=== PATIENT | female | born 1980 | race Caucasian/White ===

== ENCOUNTER 2016-11-09 13:10 | Emergency (ER) | payer OTHER ==
[2016-11-09 13:24] VITALS: BP 174/124; PULSE 143; O2SAT 97
--- NOTE | 2016-11-09 13:32 | ERPHSYRPT ---
- History of Present Illness Time Seen by Provider: 11/09/16 13:23 Source: patient Exam Limitations: clinical condition Patient Subjective Stated Complaint: pt co spasms to lower back for 2 days now, pt has done heat,motrin, ice without relief Triage Nursing Assessment: pt walked in with no difficulty,resp easy, skin w/d, alet Physician History: PATIENT WITH HISTORY OF LONGSTANDING CHRONIC LOW BACK PAIN, PREVIOUSLY TREATED IN PAIN CLINIC. DENIES RECENT HISTORY OF TRAUMA OR INJURY. STATES HAS NO RELIEF WITH NUCYENTA OR MOTRIN. Timing/Duration: day(s) Method of Injury: unknown Quality: sharp Back Pain Location: lumbar spine Back Pain Radiation: buttocks Severity of Pain-Max: severe Severity of Pain-Current: severe Modifying Factors: Improves With: movement Previous symptoms: same symptoms as today Allergies/Adverse Reactions: acetaminophen [From Tylenol] Allergy (Verified 11/09/16 13:25) droperidol Allergy (Verified 11/09/16 13:25) fentanyl Allergy (Verified 11/09/16 13:25) ketorolac [From Toradol] Allergy (Verified 11/09/16 13:25) morphine Allergy (Verified 11/09/16 13:25) Hives nalbuphine [From Nubain] Allergy (Verified 11/09/16 13:25) penicillin G Allergy (Verified 11/09/16 13:25) Hives Home Medications: Metoprolol Succinate 50 mg [Toprol Xl 50 MG] 50 mg PO BID 05/21/16 [ History] Hx Tetanus, Diphtheria Vaccination/Date Given: Yes (2012) Hx Influenza Vaccination/Date Given: No Hx Pneumococcal Vaccination/Date Given: No Immunizations Up to Date: Yes - Review of Systems Constitutional: No Fever, No Chills Eyes: No Symptoms Ears, Nose, & Throat: No Symptoms Respiratory: No Cough, No Dyspnea Cardiac: Orthopnea, No Chest Pain, No Edema, No Syncope Abdominal/Gastrointestinal: No Abdominal Pain, No Nausea, No Vomiting, No Diarrhea Genitourinary Symptoms: No Dysuria Musculoskeletal: No Back Pain, No Neck Pain Skin: No Symptoms, No Rash Neurological: No Dizziness, No Focal Weakness, No Sensory Changes Psychological: No Symptoms Endocrine: No Symptoms All Other Systems: Reviewed and Negative - Past Medical History Pertinent Past Medical History: Yes Cardiac History: Arrhythmia Musculoskeletal History: Other Female Reproductive Disorders: Endometriosis Other Medical History: mrsa, disc in back torn - Past Surgical History Past Surgical History: Yes Cardiac: Pacemaker Gastrointestinal: Appendectomy, Cholecystectomy Female Surgical History: Hysterectomy - Social History Smoking Status: Never smoker Exposure to second hand smoke: No Drug Use: none Patient Lives Alone: No - Female History Hx Last Menstrual Period: 2008 Hx Now: No - Nursing Vital Signs Temperature: 99.3 F Temperature Source: Oral Pulse Rate: 143 Respiratory Rate: 16 Pain Intensity: 4 - Physical Exam General Appearance: no apparent distress, alert, other (PATIENT AMBULATES INTO EMERGENCY IN NO DISTRESS) Eye Exam: PERRL/EOMI, eyes nml inspection Neck Exam: normal inspection, non-tender, supple, full range of motion, No meningismus, No midline tenderness Respiratory Exam: normal breath sounds, lungs clear, No respiratory distress Cardiovascular Exam: regular rate/rhythm, normal heart sounds Gastrointestinal Exam: soft, No tenderness, No mass Back Exam: vertebral tenderness, decreased range of motion Extremity Exam: normal inspection, normal range of motion, No calf tenderness, No pedal edema Peripheral Pulses: carotid (R): 2+, carotid (L): 2+, femoral (R): 2+, femoral (L ): 2+, dorsalis-pedis (R): 2+ Neurologic Exam: alert, oriented x 3, cooperative, 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 tested, normal mood/affect, nml station & gait, sensation nml, No motor deficits Skin Exam: normal color, warm, dry, No rash SpO2 Interpretation: normal SpO2: 97 Oxygen Delivery: Room Air Ordered Tests: Active Orders 24 hr Category Date Time Status UA Stat Lab 11/09/16 13:34 Ordered Urine Triage Profile Stat Lab 11/09/16 13:31 Ordered - Progress Progress: unchanged Counseled pt/family regarding: lab results - Departure Time of Disposition: 14:15 Departure Disposition: Home Clinical Impression: CHRONIC LOW BACK PAIN Condition: Stable Critical Care Time: No Additional Instructions: FOLLOWUP WITH YOUR FAMILY PHYSICIAN EARLY NEXT WEEK SCHEDULED. ZANAFLEX 2MG EVERY 8 HOURS NEEDED FOR MUSCLE SPASM. Prescriptions: Tizanidine HCl [Zanaflex] 2 mg PO TIDPRN PRN #15 capsule PRN Reason: Muscle Spasms
[2016-11-09 14:07] LABS: Collection Type CLEAN CATCH
[2016-11-09 14:11] LABS: COMPLETE URINE MICROSCOPIC? YES
[2016-11-09 14:29] LABS: Bacteria FEW /HPF (NEGATIVE); Epithelial Cells FEW /HPF (FEW); WBC 0-2 /HPF (0-5)
== END 2016-11-09 14:30 | disposition home or self-care (01) ==
LOC: ED 13:10
DX: M54.5 Low back pain (principal); G89.29 Other chronic pain
CPT/HCPCS: 80307; 81000; 99283

== ENCOUNTER 2017-04-02 20:24 | Emergency (ER) | payer OTHER ==
[2017-04-02 20:53] VITALS: O2SAT 98
[2017-04-02] MEDS ORDERED: Zanaflex 4 MG PO ONE (20:59)
--- NOTE | 2017-04-02 21:05 | ERPHSYRPT ---
- History of Present Illness Time Seen by Provider: 04/02/17 21:00 Source: patient Exam Limitations: no limitations Patient Subjective Stated Complaint: Twisted back at 1700 hours, chronic back pain, c/o lower bilat back pain, PCP Carolyn Sandoval, Triage Nursing Assessment: Twisted back at 1700 hours, chronic back pain, c/o lower bilat back pain, PCP Carolyn Sandoval, ambulates to room, no c/o numbness or tigling Physician History: 36-year-old white female arrives with complaint of pain in her low lumbar region radiating to both hips since this afternoon patient states she bent over prior to beginning of this pain. Patient has had a history of chronic back pain she has been on narcotic analgesics in the past but states she has not been taking any for several months. Patient states she usually does quite well with saline Norflex. She feels like she is having spasms in her back she denies any neurologic changes. Past medical history includes arrhythmia endometriosis chronic back pain. Past surgical history includes pacer, hysterectomy Timing/Duration: today Method of Injury: bending Quality: cramping Back Pain Location: lumbar spine Severity of Pain-Max: moderate Severity of Pain-Current: moderate Modifying Factors: Improves With: nothing Associated Symptoms: lower back pain, muscle spasms, No fever, No chills, No sweating, No urinary incontinence, No loss of bowel control, No constipation, No nausea, No vomiting, No problems urinating, No light-headedness, No dizziness , No numbness in legs/feet, No weakness, No sensory/motor loss, No tingling in legs/feet Previous symptoms: same symptoms as today Allergies/Adverse Reactions: acetaminophen [From Tylenol] Allergy (Verified 11/09/16 13:25) droperidol Allergy (Verified 11/09/16 13:25) fentanyl Allergy (Verified 11/09/16 13:25) ketorolac [From Toradol] Allergy (Verified 11/09/16 13:25) morphine Allergy (Verified 11/09/16 13:25) Hives nalbuphine [From Nubain] Allergy (Verified 11/09/16 13:25) penicillin G Allergy (Verified 11/09/16 13:25) Hives Home Medications: Metoprolol Succinate 50 mg [Toprol Xl 50 MG] 50 mg PO BID 05/21/16 [ History] Hx Tetanus, Diphtheria Vaccination/Date Given: Yes Hx Influenza Vaccination/Date Given: No Hx Pneumococcal Vaccination/Date Given: No - Review of Systems Constitutional: No Fever, No Chills Eyes: No Symptoms Ears, Nose, & Throat: No Symptoms Respiratory: No Cough, No Dyspnea Cardiac: No Chest Pain, No Edema, No Syncope Abdominal/Gastrointestinal: No Abdominal Pain, No Nausea, No Vomiting, No Diarrhea Genitourinary Symptoms: No Dysuria Musculoskeletal: Back Pain (on arrival him) Neurological: No Dizziness, No Focal Weakness, No Sensory Changes Psychological: No Symptoms Endocrine: No Symptoms All Other Systems: Reviewed and Negative - Past Medical History Pertinent Past Medical History: Yes Neurological History: No Pertinent History ENT History: No Pertinent History Cardiac History: Arrhythmia Musculoskeletal History: Other GI Medical History: GERD, Gallbladder Disease Female Reproductive Disorders: Endometriosis Other Medical History: mrsa, disc in back torn - Past Surgical History Past Surgical History: Yes Cardiac: Pacemaker Gastrointestinal: Appendectomy, Cholecystectomy Musculoskeletal: Other Female Surgical History: Hysterectomy Other Surgical History: Back - Social History Smoking Status: Never smoker Exposure to second hand smoke: No Drug Use: none Patient Lives Alone: No (home) - Female History Hx Last Menstrual Period: 2008 Hx Now: No - Nursing Vital Signs Nursing Vital Signs: Initial Vital Signs Temperature 98.6 F 04/02/17 20:33 Pulse Rate 102 H 04/02/17 20:33 Respiratory Rate 12 04/02/17 20:33 Blood Pressure 136/84 04/02/17 20:33 O2 Sat by Pulse Oximetry 98 04/02/17 20:33 Pain Scale Pain Intensity [Left Lower 3 Posterior Back] Pain Intensity 3 - Physical Exam General Appearance: no apparent distress, alert Eye Exam: PERRL/EOMI, eyes nml inspection Ears, Nose, Throat Exam: normal ENT inspection, TMs normal, pharynx normal Neck Exam: normal inspection, non-tender, supple, full range of motion, No meningismus, No midline tenderness Respiratory Exam: normal breath sounds, lungs clear, No respiratory distress Cardiovascular Exam: regular rate/rhythm, normal heart sounds Gastrointestinal Exam: soft, No tenderness, No mass Back Exam: other ( is at [facility] with ) Extremity Exam: normal inspection, normal range of motion, No calf tenderness, No pedal edema Peripheral Pulses: dorsalis-pedis (R): 2+, dorsalis-pedis (L): 2+ Neurologic Exam: alert (frustrated), oriented x 3, cooperative, 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 as tested, normal mood/affect, nml station & gait, sensation nml, No motor deficits Skin Exam: normal color (this being lazy ago this), warm, dry, No rash SpO2 Interpretation: normal (98%) SpO2: 98 Oxygen Delivery: Room Air - Course Nursing assessment & vital signs reviewed: Yes Ordered Tests: Medication Summary Generic Name Dose Route Start Last Admin Trade Name Freq PRN Reason Stop Dose Admin Tizanidine HCl 4 mg 04/02/17 20:59 Zanaflex 4 Mg PO 04/02/17 21:00 ONCE ONE - Progress Progress: improved Progress Note: 04/02/17 21:03 36-year-old white female with history of chronic back pain she arrives with complaint of pain in her lumbar region with cramping radiating to bilateral hips after bending today Patient has been on narcotics in the past secondary to this however she states she stopped this she states she was started being on narcoticsl Inspect was reviewed patient had been on recent cough syrup on March 19 and it had received 10 hydrocodone/ibuprofen 5/200 on March 26, 2017 Patient really just wants Zanaflex for her back pain will go ahead and write for Zanaflex 4 mg to take home and 4 mg orally 3 times a day as needed patient follow-up with her family doctor - Departure Time of Disposition: 21:05 Departure Disposition: Home Clinical Impression: Spasm of lumbar paraspinous muscle Back pain Qualifiers: Back pain location: low back pain Chronicity: acute Back pain laterality: bilateral Sciatica presence: without sciatica Qualified Code(s): M54.5 - Low back pain Condition: Fair Critical Care Time: No Referrals: SHRADDHA SANDOVAL [Primary Care Provider] - Instructions: Low Back Pain Additional Instructions: Return home. Avoid repetitive bending twisting lifting pushing pulling 48 hours. Zanaflex as directed. Follow-up with your family doctor. Return for acute distress or for severe symptoms. Prescriptions: Tizanidine HCl 4 mg [Zanaflex 4 MG] 4 mg PO TID PRN #12 tablet
[2017-04-02 21:30] VITALS: BP 132/89; PULSE 103
== END 2017-04-02 21:32 | disposition home or self-care (01) ==
LOC: ED 20:24
DX: M62.830 Muscle spasm of back (principal); M54.5 Low back pain; X50.1XXA Overexertion from prolonged static or awkward postures, initial encounter
CPT/HCPCS: 99281; A9270-GY

== ENCOUNTER 2018-01-26 15:00 | Emergency (ER) | payer OTHER ==
[2018-01-26 16:06] VITALS: O2SAT 96
--- NOTE | 2018-01-26 16:36 | ERPHSYRPT ---
- History of Present Illness Time Seen by Provider: 01/26/18 16:28 Source: patient Exam Limitations: no limitations Patient Subjective Stated Complaint: has a hx of L3-4, S1 back problems. pain x 2 days. unknown injury. states may have twisted it. Triage Nursing Assessment: alert and in no distress. states pain in low back. slight tenderness on palpation. able to ambulate with no distress. gait steady and even. Physician History: 37-year-old white female with history of chronic back pain, arrhythmia, reflux arrives with complaint of pain in her low back symptoms for 2 days. Patient states that she has chronic back pain with degenerative disc disease that she frequently has back pain she states she's been having pain in her low back lumbar region midline symptoms for 2 days. She states she usually gets better with Zanaflex. She denies any other complaints denies any injuries. Past medical history includes arrhythmia, cardiac pacemaker, GERD, gallbladder disease, endometriosis past surgical history includes hysterectomy, cardiac pacemaker social history patient denies tobacco alcohol, or illicit drug use. Timing/Duration: day(s) (2 days) Severity: moderate Modifying Factors: Improves With: nothing Associated Symptoms: No nausea, No vomiting, No abdominal pain, No shortness of breath, No heartburn, No diaphoresis, No cough, No chills, No chest pain, No fever, No headaches, No loss of appetite, No malaise, No rash, No syncope, No seizure, No weakness Allergies/Adverse Reactions: acetaminophen [From Tylenol] Allergy (Verified 11/09/16 13:25) droperidol Allergy (Verified 11/09/16 13:25) fentanyl Allergy (Verified 11/09/16 13:25) ketorolac [From Toradol] Allergy (Verified 11/09/16 13:25) morphine Allergy (Verified 11/09/16 13:25) Hives nalbuphine [From Nubain] Allergy (Verified 11/09/16 13:25) penicillin G Allergy (Verified 11/09/16 13:25) Hives Home Medications: Metoprolol Succinate 50 mg [Toprol Xl 50 MG] 50 mg PO BID 05/21/16 [ History] Hx Tetanus, Diphtheria Vaccination/Date Given: Yes Hx Influenza Vaccination/Date Given: No Hx Pneumococcal Vaccination/Date Given: No - Review of Systems Constitutional: No Fever, No Chills Eyes: No Symptoms Ears, Nose, & Throat: No Symptoms Respiratory: No Cough, No Dyspnea Cardiac: No Chest Pain, No Edema, No Syncope Abdominal/Gastrointestinal: No Abdominal Pain, No Nausea, No Vomiting, No Diarrhea Genitourinary Symptoms: No Dysuria Musculoskeletal: Back Pain Skin: No Rash Neurological: No Dizziness, No Focal Weakness, No Sensory Changes Psychological: No Symptoms Endocrine: No Symptoms All Other Systems: Reviewed and Negative - Past Medical History Pertinent Past Medical History: Yes Neurological History: No Pertinent History ENT History: No Pertinent History Cardiac History: Arrhythmia Musculoskeletal History: Other GI Medical History: GERD, Gallbladder Disease Female Reproductive Disorders: Endometriosis Other Medical History: mrsa, disc in back torn - Past Surgical History Past Surgical History: Yes Cardiac: Pacemaker Gastrointestinal: Appendectomy, Cholecystectomy Musculoskeletal: Other Female Surgical History: Hysterectomy Other Surgical History: Back - Social History Smoking Status: Never smoker Exposure to second hand smoke: No Drug Use: none Patient Lives Alone: No - Female History Hx Now: No - Nursing Vital Signs Nursing Vital Signs: Initial Vital Signs Temperature 99.8 F 01/26/18 15:54 Pulse Rate 95 H 01/26/18 15:54 Respiratory Rate 18 01/26/18 15:54 Blood Pressure 132/107 01/26/18 15:54 O2 Sat by Pulse Oximetry 96 01/26/18 15:54 Pain Scale Pain Intensity [Back] 7 Pain Intensity 7 - Physical Exam General Appearance: no apparent distress, alert Eye Exam: PERRL/EOMI, eyes nml inspection Ears, Nose, Throat Exam: normal ENT inspection Neck Exam: normal inspection, non-tender, supple, full range of motion Respiratory Exam: normal breath sounds, lungs clear, No respiratory distress Cardiovascular Exam: regular rate/rhythm, normal heart sounds, normal peripheral pulses Gastrointestinal/Abdomen Exam: soft, normal bowel sounds, No tenderness, No mass Back Exam: other (tender with palpation midline low lumbar region,for range of motion all e) Extremity Exam: normal inspection, normal range of motion, pelvis stable Neurologic Exam: alert, oriented x 3, cooperative, 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 She denies any injury but she states she occasionally has flares with this she states she usually improves with Zanaflex. Patient otherwise does not appear to be any acute distress she has some mild tenderness with palpation in the low lumbar region midline. She has full range of motion to all extremities sensation are intact. I did do an inspect on this patient the patient has had multiple prescribers multiple location for hydrocodone. patient does state that she works for [employer] and travels. Patient really isn't looking for hydrocodone I've discussed the patient's Zanaflex with the pharmacist. Will go ahead and place patient on Zanaflex 4 mg orally twice a day for 5 days. Patient is follow-up with her family doctor. Patient's blood pressure is elevated at 132/107 however on recheck it is 116/84. 01/26/18 16:36 - Departure Time of Disposition: 16:36 Departure Disposition: Home Clinical Impression: Back pain Qualifiers: Back pain location: low back pain Chronicity: unspecified Back pain laterality : midline Sciatica presence: without sciatica Qualified Code(s): M54.5 - Low back pain Condition: Fair Critical Care Time: No Referrals: SHRADDHA SANDOVAL [Primary Care Provider] - Instructions: Low Back Pain (DC) Additional Instructions: Return home. Zanaflex 4 mg orally twice a day for 5 days. Follow-up with your family doctor if symptoms are worse, no better in 48 hours or persist longer than one week. Return for acute distress or for severe symptoms. Prescriptions: Tizanidine HCl 4 mg [Zanaflex 4 MG] 4 mg PO BID #10 tablet
[2018-01-26 16:46] VITALS: BP 124/84; PULSE 81
== END 2018-01-26 16:45 | disposition home or self-care (01) ==
LOC: ED 15:00
DX: M54.5 Low back pain (principal)
CPT/HCPCS: 99283

== ENCOUNTER 2018-09-15 18:42 | Emergency (ER) | payer OTHER ==
--- NOTE | 2018-09-15 20:05 | ERPHSYRPT ---
- History of Present Illness Time Seen by Provider: 09/15/18 19:56 Source: patient Exam Limitations: no limitations Patient Subjective Stated Complaint: pt states this am approx 0900 she bent over to pick something up and started having lower back "spasms". Triage Nursing Assessment: pink/warm/dry, resp easy, a&ox4, steady gait, no deformities noted Physician History: The patient is a 38-year-old female complaining of oh back spasms that began this morning after picking up and moving a box of paper. She has intermittent flareups of her low back pain. She denies problems with urination or defecation. She denies numbness or tingling. She says this is her typical muscle spasm. She specifically states that Zanaflex 4 mg 4 times a day works well for her. Her past medical history significant for back pain. Timing/Duration: today, constant, sudden Method of Injury: bending, lifting, twisted Quality: aching Back Pain Location: lumbar spine, paraspinous muscles Severity of Pain-Max: moderate Severity of Pain-Current: moderate Modifying Factors: Improves With: nothing Associated Symptoms: lower back pain, muscle spasms, No urinary incontinence, No loss of bowel control, No numbness in legs/feet, No weakness, No sensory/ motor loss, No tingling in legs/feet Allergies/Adverse Reactions: droperidol Allergy (Verified 11/09/16 13:25) fentanyl Allergy (Verified 11/09/16 13:25) ketorolac [From Toradol] Allergy (Verified 11/09/16 13:25) morphine Allergy (Verified 11/09/16 13:25) Hives nalbuphine [From Nubain] Allergy (Verified 11/09/16 13:25) penicillin G Allergy (Verified 11/09/16 13:25) Hives Home Medications: Diltiazem HCl [Cardizem] 120 mg PO DAILY 09/15/18 [History] Ibuprofen 200 mg [Motrin 200 mg] 800 mg PO BID 09/15/18 [History] Hx Tetanus, Diphtheria Vaccination/Date Given: No Hx Influenza Vaccination/Date Given: No Hx Pneumococcal Vaccination/Date Given: No Immunizations Up to Date: Yes - Review of Systems Constitutional: No Fever, No Chills Eyes: No Symptoms Ears, Nose, & Throat: No Symptoms Respiratory: No Cough, No Dyspnea Cardiac: No Chest Pain, No Edema, No Syncope Abdominal/Gastrointestinal: No Abdominal Pain, No Nausea, No Vomiting, No Diarrhea Genitourinary Symptoms: No Dysuria Musculoskeletal: Back Pain, No Neck Pain Skin: No Rash Neurological: No Dizziness, No Focal Weakness, No Sensory Changes Psychological: No Symptoms Endocrine: No Symptoms Hematologic/Lymphatic: No Symptoms Immunological/Allergic: No Symptoms All Other Systems: Reviewed and Negative - Past Medical History Pertinent Past Medical History: Yes Neurological History: No Pertinent History ENT History: No Pertinent History Cardiac History: Arrhythmia, Other Respiratory History: No Pertinent History Endocrine Medical History: No Pertinent History Musculoskeletal History: Other GI Medical History: GERD, Gallbladder Disease Female Reproductive Disorders: Endometriosis Other Medical History: mrsa, disc in back torn, pacemaker for bradycardia post ablation - Past Surgical History Past Surgical History: Yes Neuro Surgical History: No Pertinent History Cardiac: Pacemaker Respiratory: No Pertinent History Gastrointestinal: Appendectomy, Cholecystectomy Musculoskeletal: Other Female Surgical History: Hysterectomy Other Surgical History: Back - Social History Smoking Status: Never smoker Exposure to second hand smoke: No Drug Use: none Patient Lives Alone: No - Female History Hx Now: No - Nursing Vital Signs Nursing Vital Signs: Initial Vital Signs Temperature 98.7 F 09/15/18 18:59 Pulse Rate 118 H 09/15/18 18:59 Respiratory Rate 14 09/15/18 18:59 Blood Pressure 134/95 09/15/18 18:59 O2 Sat by Pulse Oximetry 100 09/15/18 18:59 Pain Scale Pain Intensity [Lower Back] 4 Pain Intensity 5 - Physical Exam General Appearance: no apparent distress, alert Eye Exam: PERRL/EOMI, eyes nml inspection Ears, Nose, Throat Exam: normal ENT inspection Neck Exam: normal inspection, non-tender, supple, full range of motion, No meningismus, No midline tenderness Respiratory Exam: normal breath sounds, lungs clear, No respiratory distress Cardiovascular Exam: regular rate/rhythm, normal heart sounds Gastrointestinal Exam: soft, No tenderness, No mass Pelvic Exam: not done Rectal Exam: not done Back Exam: muscle spasm (lumbar paraspinous spasm and tenderness) Extremity Exam: normal inspection, normal range of motion, No calf tenderness, No pedal edema Neurologic Exam: alert, oriented x 3, cooperative, 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 Take Zanaflex 4 mg 4 times a day as needed. Follow-up with your primary medical doctor as needed. Prescriptions: Tizanidine HCl 4 mg PO QID #12 tablet
[2018-09-15 20:22] VITALS: BP 158/109; PULSE 130; O2SAT 98
== END 2018-09-15 20:20 | disposition home or self-care (01) ==
LOC: ED 18:42
DX: R25.2 Cramp and spasm (principal); M54.5 Low back pain; X50.9XXA Other and unspecified overexertion or strenuous movements or postures, initial encounter; K21.9 Gastro-esophageal reflux disease without esophagitis; Z95.0 Presence of cardiac pacemaker
CPT/HCPCS: 99283

== ENCOUNTER 2019-01-14 09:07 | Emergency (ER) | payer OTHER ==
--- NOTE | 2019-01-14 09:38 | ERPHSYRPT ---
- History of Present Illness Time Seen by Provider: 01/14/19 09:32 Source: patient Exam Limitations: no limitations Patient Subjective Stated Complaint: pt here for low back pain, she has a hx of low back pain, she states started at about 0700 today when she got out of bed wrong Triage Nursing Assessment: pt alert, walked in, resp easy, skin w.d.p,moves all ext well, took motrin at home. no edema Physician History: This is a 38-year-old white female with history of chronic back pain, arrhythmia , GERD, gallbladder disease, endometriosis, MRSA, degenerative disc disease, cardiac pacemaker, post ablation She arrives with complaint of pain in her back since getting out of bed this morning he states he got out of bed wrong. She denies any other complaints she she is noted to have a rapid heart rate however she states she has not taken her Cardizem today she feel like it makes her sleepy. Past medical history includes arrhythmia, GERD, gallbladder disease, endometriosis, MRSA, disc in her back problems, pacer, secondary to tachycardia , ablation Past surgical history includes appendectomy cholecystectomy hysterectomy Social history denies tobacco alcohol or illicit drug use. Timing/Duration: today (7 AM) Severity: moderate Modifying Factors: Improves With: nothing Associated Symptoms: other (back pain), No nausea, No vomiting, No abdominal pain, No shortness of breath, No heartburn, No diaphoresis, No cough, No chills , No chest pain, No fever, No headaches, No loss of appetite, No malaise, No rash, No syncope, No seizure, No weakness Allergies/Adverse Reactions: droperidol Allergy (Verified 01/14/19 09:11) fentanyl Allergy (Verified 01/14/19 09:11) ketorolac [From Toradol] Allergy (Verified 01/14/19 09:11) morphine Allergy (Verified 01/14/19 09:11) Hives nalbuphine [From Nubain] Allergy (Verified 01/14/19 09:11) penicillin G Allergy (Verified 01/14/19 09:11) Hives Home Medications: Diltiazem HCl [Cardizem] 120 mg PO DAILY 09/15/18 [History] Ibuprofen 200 mg [Motrin 200 mg] 800 mg PO BID 09/15/18 [History] Metoprolol Tartrate [Lopressor] 50 mg DAILY 01/14/19 [History] Hx Tetanus, Diphtheria Vaccination/Date Given: No Hx Influenza Vaccination/Date Given: No Hx Pneumococcal Vaccination/Date Given: No Immunizations Up to Date: Yes - Review of Systems Constitutional: No Fever, No Chills Eyes: No Symptoms Ears, Nose, & Throat: No Symptoms Respiratory: No Cough, No Dyspnea Cardiac: No Chest Pain, No Edema, No Syncope Abdominal/Gastrointestinal: No Abdominal Pain, No Nausea, No Vomiting, No Diarrhea Genitourinary Symptoms: No Dysuria Musculoskeletal: Back Pain Skin: No Rash Neurological: No Dizziness, No Focal Weakness, No Sensory Changes Psychological: No Symptoms Endocrine: No Symptoms All Other Systems: Reviewed and Negative - Past Medical History Pertinent Past Medical History: Yes Neurological History: No Pertinent History ENT History: No Pertinent History Cardiac History: Arrhythmia, Other Respiratory History: No Pertinent History Endocrine Medical History: No Pertinent History Musculoskeletal History: Other GI Medical History: GERD, Gallbladder Disease Female Reproductive Disorders: Endometriosis Other Medical History: mrsa, disc in back torn, pacemaker for bradycardia post ablation - Past Surgical History Past Surgical History: Yes Neuro Surgical History: No Pertinent History Cardiac: Pacemaker Respiratory: No Pertinent History Gastrointestinal: Appendectomy, Cholecystectomy Musculoskeletal: Other Female Surgical History: Hysterectomy Other Surgical History: Back - Social History Smoking Status: Never smoker Exposure to second hand smoke: No Drug Use: none Patient Lives Alone: No - Female History Hx Last Menstrual Period: 2008 Hx Now: No - Nursing Vital Signs Nursing Vital Signs: Initial Vital Signs Temperature 98.3 F 01/14/19 09:16 Pulse Rate 143 H 01/14/19 09:16 Respiratory Rate 18 01/14/19 09:16 Blood Pressure 139/108 01/14/19 09:16 O2 Sat by Pulse Oximetry 100 01/14/19 09:16 Pain Scale Pain Intensity [Back] 6 Pain Intensity 6 - Physical Exam General Appearance: mild distress, alert Eye Exam: PERRL/EOMI, eyes nml inspection Ears, Nose, Throat Exam: normal ENT inspection, TMs normal, pharynx normal, moist mucous membranes Neck Exam: normal inspection, non-tender, supple, full range of motion Respiratory Exam: normal breath sounds, lungs clear, No respiratory distress Cardiovascular Exam: normal heart sounds, normal peripheral pulses, tachycardia , capillary refill <2 sec Gastrointestinal/Abdomen Exam: soft, normal bowel sounds, No tenderness, No mass Back Exam: other (back hanger posteriorly low back) Extremity Exam: normal inspection, normal range of motion, pelvis stable Neurologic Exam: alert, oriented x 3, cooperative, normal mood/affect, nml cerebellar function, nml station & gait, sensation nml, No motor deficits Skin Exam: normal color (nnegative), warm, dry, No rash SpO2 Interpretation: normal (100%) SpO2: 100 - Course Nursing assessment & vital signs reviewed: Yes - Progress Progress: improved Progress Note: 01/14/19 09:36 38-year-old white female arrives with complaint of back spasm symptoms since this morning. Patient's the medications are reviewed she has been going place place to get Zanaflex. She's also been going to multiple prescribers receiving hydrocodone oxycodone. This is multiple different places. Patient states he works for [employer] and give her meds from the emergency room. Patient is noted to be tachycardic on arrival. She states she did not take her Cardizem this morning. I've told her we need to work this up she does not want this done will have her AMA for the Cardizem. I've told the patient she needs to find a regular provider for her Zanaflex as well as her other medications will give Zanaflex at this time. Doubt will repeat this. - Departure Departure Disposition: Home Clinical Impression: Spasm of lumbar paraspinous muscle, Tachycardia Chronic back pain Qualifiers: Back pain location: low back pain Back pain laterality: unspecified Sciatica presence: without sciatica Qualified Code(s): M54.5 - Low back pain; G89.29 - Other chronic pain Condition: Fair Critical Care Time: No Referrals: SHRADDHA SANDOVAL [Primary Care Provider] - Instructions: Low Back Pain (DC) Additional Instructions: Return home. Zanaflex as prescribed. You need to take your Cardizem as prescribed by your family Your signing out against treatment for your tachycardia, Tachycardia can be very dangerous or even lethal. Followup with your family Please (list)) You will need to followup with your family doctor for further prescriptions of Zanaflex, muscle relaxers, her narcotic analgesics. Return for acute distress or for severe symptoms Prescriptions: Tizanidine HCl 4 mg [Zanaflex 4 MG] 4 mg PO QID PRN #12 tablet
[2019-01-14 09:50] VITALS: BP 145/112; PULSE 62; O2SAT 95
== END 2019-01-14 09:50 | disposition home or self-care (01) ==
LOC: ED 09:07
DX: M62.830 Muscle spasm of back (principal); R00.0 Tachycardia, unspecified; M54.5 Low back pain; G89.29 Other chronic pain; Z86.14 Personal history of Methicillin resistant Staphylococcus aureus infection; X50.0XXA Overexertion from strenuous movement or load, initial encounter; Z95.0 Presence of cardiac pacemaker
CPT/HCPCS: 99283

== ENCOUNTER 2020-01-18 07:48 | Emergency (ER) | payer OTHER ==
[2020-01-18 08:02] VITALS: BP 148/99; PULSE 142; O2SAT 100
[2020-01-18] MEDS ORDERED: TYLENOL EXTRA STRENGTH 500 MG PO STA (08:05)
--- NOTE | 2020-01-18 08:06 | ERPHSYRPT ---
- History of Present Illness Time Seen by Provider: 01/18/20 07:51 Source: patient Exam Limitations: no limitations Patient Subjective Stated Complaint: pt here for lower back spasms since this morning Triage Nursing Assessment: pt alert, walked in, able to undress, resp easy, skin w/d/p.has edema to feet she states is normal for her Physician History: Patient is here with her chronic back pain. Patient has known chronic back spasms. Location: low back Quality: spasms Radiation: none Severity: moderate Duration: acute on chronic Timing: gradual Modifying factors/associated signs and symptoms: none tried Patient has no red flag symptoms for back pain today: No Loss of control of the bowel or bladder. No weakness or numbness in a leg or arm. No foot drop, disturbed gait. No high fever, no IV drug use. No saddle anaesthesia (numbness of the anus, perineum or genitals). No trauma or h/o cancer Allergies/Adverse Reactions: droperidol Allergy (Verified 01/18/20 08:02) fentanyl Allergy (Verified 01/18/20 08:02) ketorolac [From Toradol] Allergy (Verified 01/18/20 08:02) morphine Allergy (Verified 01/18/20 08:02) Hives nalbuphine [From Nubain] Allergy (Verified 01/18/20 08:02) penicillin G Allergy (Verified 01/18/20 08:02) Hives Home Medications: Diltiazem HCl [Cardizem] 120 mg PO DAILY 09/15/18 [History] Ibuprofen 200 mg [Motrin 200 mg] 800 mg PO BID 09/15/18 [History] Metoprolol Tartrate [Lopressor] 50 mg DAILY 01/14/19 [History] Hx Tetanus, Diphtheria Vaccination/Date Given: No Hx Influenza Vaccination/Date Given: No Hx Pneumococcal Vaccination/Date Given: No Immunizations Up to Date: Yes Travel Risk - International Travel Have you traveled outside of the country in past 3 weeks: No - Coronavirus Screening Are you exhibiting any of the following symptoms?: No Close contact with a COVID-19 positive Pt in past 14-21 Days: No - Review of Systems Constitutional: No Fever, No Chills Eyes: No Symptoms Ears, Nose, & Throat: No Symptoms Respiratory: No Cough, No Dyspnea Cardiac: No Chest Pain, No Edema, No Syncope Abdominal/Gastrointestinal: No Abdominal Pain, No Nausea, No Vomiting, No Diarrhea Genitourinary Symptoms: No Dysuria Musculoskeletal: No Back Pain, No Neck Pain Skin: No Rash Neurological: No Dizziness, No Focal Weakness, No Sensory Changes Psychological: No Symptoms Endocrine: No Symptoms All Other Systems: Reviewed and Negative - Past Medical History Pertinent Past Medical History: Yes Neurological History: No Pertinent History ENT History: No Pertinent History Cardiac History: Arrhythmia, Other Respiratory History: No Pertinent History Endocrine Medical History: No Pertinent History Musculoskeletal History: Other GI Medical History: GERD, Gallbladder Disease Female Reproductive Disorders: Endometriosis Other Medical History: mrsa, disc in back torn, pacemaker for bradycardia post ablation - Past Surgical History Past Surgical History: Yes Neuro Surgical History: No Pertinent History Cardiac: Pacemaker Respiratory: No Pertinent History Gastrointestinal: Appendectomy, Cholecystectomy Musculoskeletal: Other Female Surgical History: Hysterectomy Other Surgical History: Back - Social History Smoking Status: Never smoker Exposure to second hand smoke: No Drug Use: none Patient Lives Alone: No - Female History Hx Last Menstrual Period: psot Hx Now: No - Nursing Vital Signs Nursing Vital Signs: Initial Vital Signs Temperature 99.4 F 01/18/20 07:55 Pulse Rate 142 H 01/18/20 07:55 Respiratory Rate 18 01/18/20 07:55 Blood Pressure 148/99 01/18/20 07:55 O2 Sat by Pulse Oximetry 100 01/18/20 07:55 Pain Scale Pain Intensity [Back] 4 Pain Intensity 4 - Physical Exam General Appearance: no apparent distress, alert Eye Exam: PERRL/EOMI, eyes nml inspection Ears, Nose, Throat Exam: normal ENT inspection, TMs normal, pharynx normal, moist mucous membranes Neck Exam: normal inspection, non-tender, supple, full range of motion Respiratory Exam: normal breath sounds, lungs clear, No respiratory distress Cardiovascular Exam: regular rate/rhythm, normal heart sounds, normal peripheral pulses Gastrointestinal/Abdomen Exam: soft, normal bowel sounds, No tenderness, No mass Back Exam: normal inspection, normal range of motion, No CVA tenderness, No vertebral tenderness Extremity Exam: normal inspection, normal range of motion, pelvis stable Neurologic Exam: alert, oriented x 3, cooperative, normal mood/affect, nml cerebellar function, nml station & gait, sensation nml, No motor deficits Skin Exam: normal color, warm, dry, No rash Lymphatic Exam: No adenopathy SpO2 Interpretation: normal SpO2: 100 Comments: 01/18/20 08:23 No obvious deformity, sensation intact, 2+ capillary refill, 2 point tactile discrimination intact. 5 out of 5 strength. Full range of motion without pain. Compartments are soft, nontender. Overlying skin shows no tenting, bruising, ecchymosis. Motor: There is no pronator drift of out-stretched arms. Muscle bulk and tone are normal. Strength is full bilaterally. Reflexes: Reflexes are 2+ and symmetric at the biceps, triceps, knees, and ankles. Plantar responses are flexor. Sensory: Light touch sense are intact in bilateral upper and lower extremities. There is no sign of neglect. Coordination: Rapid alternating movements are intact. There is no dysmetria on [id number] and [id number]. There are no abnormal or extraneous movements. Romberg is absent. Gait/Stance: Posture is normal. Gait is steady with normal steps, base, arm swing, and turning. Heel and toe walking are normal. Tandem gait is normal. Ordered Tests: Medication Summary Discontinued Medications Generic Name Dose Route Start Last Admin Trade Name Freq PRN Reason Stop Dose Admin Acetaminophen 1,000 mg 01/18/20 08:05 Tylenol Extra Strength 500 Mg PO 01/18/20 08:06 STAT STA - Progress Progress: improved Progress Note: 01/18/20 08:24 Patient has normal neurological exam. No red flag symptoms for back pain. Patient is tachycardic. However, she has not been taking her metoprolol or diltiazem. I do believe that this could be rebound tachycardia from not taking her medication. Otherwise she has no chest pain or is not short of breath. I have a high concern for medication abuse. Reviewing her pharmacy list, she has been taking the zanaflex from multiple providers. This is highly concerning given the potential for medication abuse. Appropriate management of acute pain is a cornerstone of high-quality emergency department care. Prescription drug abuse has become an issue of national importance. Pain management should be patient centered and evidence-based. The evidence shows that opioids do not expedite return to work, do not improve functional outcomes, and there is no difference in outcomes between opioids and non- opioid medications. Opioid overuse and abuse has risen to epidemic levels resulting in significant morbidity and mortality. Utilizing evidence-based recommendations, to reduce the risks associated with opioid and other controlled substance abuse and misuse, providing controlled substances in this case is likely not beneficial over the level of risk involved. I have offered a nonnarcotic alternative as a first-line therapy instead of controlled substances. Nonpharmacologic management of pain such as ice to and immobilization of an injured or painful area, elevation of injured joints/extremities, warm blankets or heating pads, noise reduction, light control in the room, [id number] topical and oral analgesics and distraction techniques are all options. The patient is referred for outpatient pain management. - Departure Departure Disposition: Home Clinical Impression: Back spasm Condition: Stable Critical Care Time: No Referrals: SHRADDHA SANDOVAL [Primary Care Provider] - Instructions: Low Back Pain (DC)
[2020-01-18] MEDS ORDERED: TYLENOL EXTRA STRENGTH 500 MG ONE (08:09)
== END 2020-01-18 08:19 | disposition home or self-care (01) ==
LOC: ED 07:48
DX: M62.830 Muscle spasm of back (principal); M54.5 Low back pain; G89.29 Other chronic pain; F45.42 Pain disorder with related psychological factors; Z79.899 Other long term (current) drug therapy; Z86.14 Personal history of Methicillin resistant Staphylococcus aureus infection
CPT/HCPCS: 99283; A9270-GY